=== PATIENT | male | born 1985 | race Caucasian/White ===

== ENCOUNTER 2016-09-04 10:37 | Emergency (ER) | payer SELFPAY ==
[~2016-09-04] VITALS: Ht 160 cm; Wt 68.5 kg
[~2016-09-04 10:37] MED LIST: DICY10CA60 PO; LOPE2CAP PO; ONDA4TAB8 PO
[2016-09-04 10:45] VITALS: Ht 160 cm; Wt 68.5 kg
[2016-09-04] MEDS ORDERED: LORAZEPAM 1 MG TAB PO ONE (13:00)
--- NOTE | 2016-09-04 13:53 | RADRPT ---
PROCEDURE: XR Chest. CLINICAL INDICATION: chest pain TECHNIQUE: Single frontal view of the chest was obtained COMPARISON: None FINDINGS: The heart and mediastinum are within normal limits. The lungs are clear. There is no pleural effusion or pneumothorax. RPTAT: AA IMPRESSION: No acute disease. .Yosi Wayne MD, Date Time Electronically viewed and signed by .Yosi Wayne MD, on 09/04/2016 13:52 .S/
[2016-09-04] MEDS ORDERED: LORA-441 PO (14:40)
[2016-09-04 14:46] VITALS: BP 126/72; PULSE 70; RESP 18; TEMP 98.2
--- NOTE | 2016-09-04 14:49 | ERD ---
ER Documentation Chief Complaint Date/Time DATE: 09/04/16 TIME: 14:44 Chief Complaint SHARP PAIN @ LEFT CHEST AREA HPI 31-year-old male patient with a previous history of alcoholism presents to the ED complaining of intermittent chest pain that started 1 week ago. Reports that it would sometimes occur at work and usually in the mornings at home. States that he feels like he is nervous and shaking. Denies any seizures. Denies any fever, neck stiffness, wheezing, shortness of breath, abdominal pain , nausea, vomiting, diarrhea. Denies any sick contacts. Denies any family history of heart attacks. Denies any drug use, smoking. ROS All systems reviewed and are negative except as per history of present illness. Medications Home Meds Active Scripts Lorazepam* (Ativan*) 0.5 Mg Tablet, 0.5 MG PO QHS, #3 TAB Prov:BAKARI BUENROSTRO PA-C 09/04/16 Dicyclomine Hcl* (Bentyl*) 10 Mg Capsule, 10 MG PO QID for 3 Days, CAP Prov:CHAITANYA YANES C 07/16/15 Ondansetron Hcl* (Zofran*) 4 Mg Tablet, 4 MG PO Q6H for NAUSEA AND/OR VOMITING, #30 TAB Prov:JOAQUÍNCHAITANYA CERNA C 07/16/15 Loperamide Hcl* (Imodium*) 2 Mg Capsule, 2 MG PO .WITH EACH DIARRHEA Y for DIARRHEA for 3 Days, CAP MAX 16 mg/day Prov:JOAQUÍNCHAITANYA CERNA C 07/16/15 Allergies Allergies: Coded Allergies: No Known Drug Allergies (Verified Allergy, Unknown, 07/31/15) PMhx/Soc Medical and Surgical Hx: pt denies Medical Hx, pt denies Surgical Hx Hx Alcohol Use: Yes Hx Substance Use: No Hx Tobacco Use: No Physical Exam Vitals Vital Signs Date Time Temp Pulse Resp B/P Pulse Ox O2 Delivery O2 Flow Rate FiO2 09/04/16 10:45 98.1 70 19 132/65 99 Physical Exam Const: Pky-hoh-gdvhvxryd, well-nourished. In no acute distress. Head: Atraumatic, normocephalic Eyes: Normal Conjunctiva without injection. No purulent discharge. PERRL. EOMI ENT: Normal external ear. Ear canal without erythema. Tympanic membrane pearly ledezma without effusion or bulging. Nasal canal clear with normal turbinates. Moist oropharynx without tonsillar exudates. Non-erythematous pharynx. Uvula midline. No drooling. No trismus. Neck: Full range of motion. No meningismus. No cervical lymphadenopathy. Resp: Clear to auscultation bilaterally. No wheezing, rhonchi, rales, or crackles. No accessory muscle use. No retractions. Cardio: Regular rate and rhythm. No murmurs, rubs or gallops. Chest: Tenderness to palpation of the left anterior chest. Pain is reproducible. Abd: Soft, non tender, non distended. Normal bowel sounds. No palpable masses. No rebound tenderness. No guarding. Skin: No petechiae or rashes Back: No midline tenderness. No CVA tenderness. Ext: No cyanosis, or edema. Neur: Awake and alert. Psych: Normal Mood and Affect Results 24 hrs Current Medications Medications (Trade) Dose Ordered Sig/Jaimee Route PRN Reason Start Time Stop Time Status Last Admin Dose Admin Lorazepam (Ativan) 1 mg ONCE ONCE PO 09/04/16 13:00 09/04/16 13:01 DC 09/04/16 12:58 Procedures/MDM This is a 31-year-old male patient with a past medical history of previous alcoholism which he is no longer taking presents to the ED complaining of sharp left sided chest pain and numbness and tingling associated with nervousness. Patient is afebrile and nontoxic-appearing. Patient has normal vital signs. Patient was further evaluated with EKG and chest x-ray. Patient was given Ativan 1 mg here in the ED with improvement of his symptoms. PROCEDURE: XR Chest. CLINICAL INDICATION: chest pain TECHNIQUE: Single frontal view of the chest was obtained COMPARISON: None FINDINGS: The heart and mediastinum are within normal limits. The lungs are clear. There is no pleural effusion or pneumothorax. RPTAT: AA IMPRESSION: No acute disease. EKG reviewed and interpreted by Dr. Manning Rate/Rhythm: [77 bpm, Normal Sinus Rhythm] No ectopy, no ST elevations, normal axis. QRS, ST, T-waves: [No changes consistent w/ acute ischemia] Impression: [No evidence of ischemia or arrhythmia] Patient symptoms are likely due to anxiety versus costochondritis. Reports that he has no relief with Ibuprofen and Tylenol. Low suspicion for delirium tremens, acute myocardial infarction, pneumothorax, pneumonia, cardiac tamponade , strangulate hernia, pulmonary embolism, AAA, aortic dissection, Boerhaave's syndrome, cardiac dysrhythmias,meningitis, intracranial bleed, seizure, stroke, TIA or other emergent conditions. Discharge medications: Ativan 0.5 mg qHS Follow up with primary care physician in 1-2 days. Check to patient to not drive or operate heavy machinery while taking this medication. Instructed patient to return to the ED sooner for any worsening symptoms. Patient's questions were answered. Patient understood and agreed with discharge plan. Patient discharged stable. Departure Diagnosis: Primary Impression: Chest pain Chest pain type: unspecified Qualified Code: R07.9 - Chest pain, unspecified type Condition: Stable Patient Instructions: Your Body's Response to Anxiety, Anxiety Reaction, Chest Wall Pain, Costochondritis Referrals: [facility] YOU HAVE RECEIVED A MEDICAL SCREENING EXAM AND THE RESULTS INDICATE THAT YOU DO NOT HAVE A CONDITION THAT REQUIRES URGENT TREATMENT IN THE EMERGENCY DEPARTMENT. FURTHER EVALUATION AND TREATMENT OF YOUR CONDITION CAN WAIT UNTIL YOU ARE SEEN IN YOUR DOCTORS OFFICE WITHIN THE NEXT 1-2 DAYS. IT IS YOUR RESPONSIBILITY TO MAKE AN APPOINTMENT FOR [facility]- CARE. IF YOU HAVE A PRIMARY DOCTOR --you should call your primary doctor and schedule an appointment IF YOU DO NOT HAVE A PRIMARY DOCTOR YOU CAN CALL OUR PHYSICIAN REFERRAL HOTLINE AT IF YOU CAN NOT AFFORD TO SEE A PHYSICIAN YOU CAN CHOSE FROM THE FOLLOWING [facility] CL[facility]ICS [facility] [address] [facility]. [facility] [address] [facility]. [facility] [address] [facility]. [facility] [address] [facility]. [facility] [address] [facility]. [facility]. [address] [facility] YOU HAVE RECEIVED A MEDICAL SCREENING EXAM AND THE RESULTS INDICATE THAT YOU DO NOT HAVE A CONDITION THAT REQUIRES URGENT TREATMENT IN THE EMERGENCY DEPARTMENT. FURTHER EVALUATION AND TREATMENT OF YOUR CONDITION CAN WAIT UNTIL YOU ARE SEEN IN YOUR DOCTORS OFFICE WITHIN THE NEXT 1-2 DAYS. IT IS YOUR RESPONSIBILITY TO MAKE AN APPOINTMENT FOR FOLOW-UP CARE. IF YOU HAVE A PRIMARY DOCTOR --you should call your primary doctor and schedule and appointment IF YOU DO NOT HAVE A PRIMARY DOCTOR YOU CAN CALL OUR PHYSICIAN REFERRAL HOTLINE AT . IF YOU CAN NOT AFFORD TO SEE A PHYSICIAN YOU CAN CHOSE FROM THE FOLLOWING [facility] INSTITUTIONS: [facility] [address] [place] [address] [facility] [address] [place] [address] [facility] + [facility] [address] [place] [address] [facility] URGENT CARE/SPECIALTIES Additional Instructions: Llame al doctor MAANA y cecy adams ARIANNA PARA DENTRO DE 2-3 HERNANDEZ.Dgale a la secretaria que nosotros le instruimos hacer esta arianna.Avise o llame si vaz condicin se empeora antes de la arianna. Regresa aqui si peor o no mejor. La medicina que se le recet puede causarle sueo.NO DEBE MANEJAR NI OPERAR MAQUINARIAS PELIGROSAS mientras esta tomando esta medicina! BAKARI BUENROSTRO PA-C Sep 04, 2016 14:49 BAKARI BUENROSTRO PA-C Sep 04, 2016 14:49
== END 2016-09-04 14:47 | disposition home or self-care (01) ==
LOC: FTE 10:37
DX: R07.9 Chest pain, unspecified (principal)
CPT/HCPCS: 71010; 93005

== ENCOUNTER 2017-01-02 15:26 | Emergency (ER) | END 2017-01-02 20:16 | disposition home or self-care (01) | DX: R07.9 Chest pain, unspecified (principal) | CPT/HCPCS: 71010; 80053; 81003; 84484; 85025; 93005; Z7502 ==

== ENCOUNTER 2017-09-24 11:36 | Emergency (ER) | END 2017-09-24 14:33 | disposition home or self-care (01) ==

== ENCOUNTER 2017-11-01 17:04 | Emergency (ER) | END 2017-11-01 20:05 | disposition home or self-care (01) ==

== ENCOUNTER 2017-11-24 12:19 | Emergency (ER) | END 2017-11-24 14:38 | disposition home or self-care (01) ==

== ENCOUNTER 2018-03-12 14:18 | Emergency (ER) | END 2018-03-12 17:00 | disposition home or self-care (01) ==

== ENCOUNTER 2018-03-28 12:33 | Emergency (ER) | END 2018-03-28 15:55 | disposition home or self-care (01) ==

== ENCOUNTER 2018-05-20 01:03 | Emergency (ER) | payer MEDICAID ==
[~2018-05-20] VITALS: Ht 162.6 cm; Wt 73.9 kg
[~2018-05-20 01:03] MED LIST changes: +CYCL10TA7 PO; +DICY10CA40 PO; -DICY10CA60 PO; +ELEC100080 PO; +FLUO20CA22 PO; +IBUP-1542 PO; +IBUP800T48 PO; +LORA-441 PO; +LORA1TAB PO; +NAPR-985 PO; +PRED20TA PO; +TRAM50TA2 PO
[2018-05-20 01:22] VITALS: BP 139/85; PULSE 81; RESP 16; Ht 162.6 cm; Wt 73.9 kg
[2018-05-20] MEDS ORDERED: LORA-441 PO (04:49)
--- NOTE | 2018-05-20 04:51 | ERD ---
ER Documentation Chief Complaint Chief Complaint ANXIETY; FREQUENT VISITS FOR RX ROS All systems reviewed and are negative except as per history of present illness. Medications Home Meds Active Scripts Lorazepam* (Ativan*) 0.5 Mg Tablet, 0.5 MG PO Q8H PRN for ANXIETY, #10 TAB Prov:NAHID KEITA DO 05/20/18 Lorazepam* (Ativan*) 0.5 Mg Tablet, 0.5 MG PO Q8H PRN for ANXIETY, #15 TAB Prov:NAHID KEITA 03/28/18 Lorazepam* (Ativan*) 0.5 Mg Tablet, 0.5 MG PO DAILY PRN for ANXIETY, #10 TAB Prov:CAMILA STARK MD 03/12/18 Fluoxetine Hcl* (Fluoxetine Hcl*) 20 Mg Capsule, 20 MG PO DAILY, #30 CAP Prov:CAMILA STARK MD 03/12/18 Loperamide Hcl* (Imodium*) 2 Mg Capsule, 2 MG PO .AFTER EA LOOSE BM PRN for DIARRHEA, #6 TAB Prov:CHANDRAKANT WATSON PA-C 11/24/17 Dicyclomine HCl (Dicyclomine HCl) 10 Mg Capsule, 10 MG PO QID, #20 Prov:CHANDRAKANT WATSON PA-C 11/24/17 Electrolyte,Oral (Pedialyte) 1,000 Ml Solution, 100 ML PO Q6 PRN for DIARRHEA, #1000 ML Prov:CHANDRAKANT WATSON PA-C 11/24/17 Tramadol HCl (Tramadol HCl) 50 Mg Tablet, 50 MG PO Q4 PRN for PAIN, #15 TAB Prov:KAREY KENNEY PA-C 11/01/17 Naproxen* (Naprosyn*) 500 Mg Tablet, 500 MG PO BID PRN for PAIN AND/OR INFLAMMATION, #30 TAB Prov:KAREY KENNEY PA-C 11/01/17 Prednisone* (Prednisone*) 20 Mg Tab, 40 MG PO DAILY for 4 Days, TAB Prov:CHANDRAKANT WATSON PA-C 09/24/17 Naproxen* (Naprosyn*) 500 Mg Tablet, 500 MG PO BID PRN for PAIN AND/OR INFLAMMATION, #30 TAB Prov:CHANDRAKANT WATSON PA-C 09/24/17 Tramadol HCl (Tramadol HCl) 50 Mg Tablet, 50 MG PO Q6 PRN for PAIN, #20 TAB Prov:CHANDRAKANT WATSON PA-C 09/24/17 Cyclobenzaprine Hcl* (Cyclobenzaprine Hcl*) 10 Mg Tablet, 10 MG PO TID, #15 TAB Prov:RISA ASH. ESTIMATOR JEWELRY 08/16/17 Ibuprofen* (Motrin*) 800 Mg Tab, 800 MG PO Q6H PRN for PAIN AND OR ELEVATED TEMP, #30 TAB Prov:RISA ASH. ESTIMATOR JEWELRY 08/16/17 Lorazepam* (Lorazepam*) 1 Mg Tablet, 1 MG PO Q8, #10 TAB Prov:CHAITANYA YANES 01/02/17 Ibuprofen* (Motrin*) 600 Mg Tab, 600 MG PO Q6, #30 TAB Prov:CHAITANYA YANES 01/02/17 Lorazepam* (Ativan*) 0.5 Mg Tablet, 0.5 MG PO QHS, #3 TAB Prov:BAKARI BUENROTSRO PA-C 09/04/16 Dicyclomine HCl (Dicyclomine HCl) 10 Mg Capsule, 10 MG PO QID for 3 Days, CAP Prov:CHAITANYA YANES 07/16/15 Ondansetron Hcl* (Zofran*) 4 Mg Tablet, 4 MG PO Q6H for NAUSEA AND/OR VOMITING, #30 TAB Prov:CHAITANYA YANES 07/16/15 Loperamide Hcl* (Imodium*) 2 Mg Capsule, 2 MG PO .WITH EACH DIARRHEA PRN for DIARRHEA for 3 Days, CAP MAX 16 mg/day Prov:CHAITANYA YANES 07/16/15 Allergies Allergies: Coded Allergies: No Known Drug Allergies (Verified Allergy, Unknown, 11/24/17) PMhx/Soc Medical and Surgical Hx: pt denies Medical Hx, pt denies Surgical Hx History of Surgery: No Anesthesia Reaction: No Hx Neurological Disorder: No Hx Respiratory Disorders: No Hx Cardiac Disorders: No Hx Psychiatric Problems: No Hx Miscellaneous Medical Probl: No Hx Alcohol Use: No Hx Substance Use: No Hx Tobacco Use: No Physical Exam Vitals Vital Signs Date Temp Pulse Resp B/P (MAP) Pulse Ox O2 O2 Flow FiO2 Time Delivery Rate 2/18/19 99.1 81 16 139/85 95 01:22 (103) Physical Exam Const: No acute distress Head: Atraumatic Eyes: Normal Conjunctiva ENT: Normal External Ears, Nose and Mouth. Neck: Full range of motion. No meningismus. Resp: Clear to auscultation bilaterally Cardio: Regular rate and rhythm, no murmurs Abd: Soft, non tender, non distended. Normal bowel sounds Skin: No petechiae or rashes Back: No midline or flank tenderness Ext: No cyanosis, or edema Neur: Awake and alert Psych: Normal Mood and Affect Departure Diagnosis: Primary Impression: Chest pain Chest pain type: unspecified Qualified Codes: R07.9 - Chest pain, unspecified Condition: Fair Patient Instructions: Chest Pain, Uncertain Cause Referrals: [facility] YOU HAVE RECEIVED A MEDICAL SCREENING EXAM AND THE RESULTS INDICATE THAT YOU DO NOT HAVE A CONDITION THAT REQUIRES URGENT TREATMENT IN THE EMERGENCY DEPARTMENT. FURTHER EVALUATION AND TREATMENT OF YOUR CONDITION CAN WAIT UNTIL YOU ARE SEEN IN YOUR DOCTORS OFFICE WITHIN THE NEXT 1-2 DAYS. IT IS YOUR RESPONSIBILITY TO MAKE AN APPOINTMENT FOR FOLOW-UP CARE. IF YOU HAVE A PRIMARY DOCTOR --you should call your primary doctor and schedule an appointment IF YOU DO NOT HAVE A PRIMARY DOCTOR YOU CAN CALL OUR PHYSICIAN REFERRAL HOTLINE AT IF YOU CAN NOT AFFORD TO SEE A PHYSICIAN YOU CAN CHOSE FROM THE FOLLOWING [facility] [address] [facility]. [facility] [address] [facility] [address] [facility] [address] [facility]. [facility] [address] [facility]. [facility]. [address] Additional Instructions: Llame al doctor MAANA y cecy adams ARIANNA PARA DENTRO DE 1-2 HERNANDEZ.Dgale a la secretaria que nosotros le instruimos hacer esta arianna.Avise o llame si vaz condicin se empeora antes de la arianna. Regresa aqui si peor o no mejor. NAHID KEITA DO May 20, 2018 04:51
== END 2018-05-20 04:57 | disposition home or self-care (01) ==
LOC: FTE 01:03
DX: R07.9 Chest pain, unspecified (principal)
CPT/HCPCS: 93005

== ENCOUNTER 2018-07-23 11:46 | Emergency (ER) | payer MEDICAID ==
[~2018-07-23] VITALS: Ht 165.1 cm; Wt 67.9 kg
[2018-07-23 11:52] VITALS: BP 130/86; PULSE 100; RESP 18; Ht 165.1 cm; Wt 67.9 kg
[2018-07-23] MEDS ORDERED: ALBUTEROL 0.083% (NEB) 2.5 MG/3 ML AMP HHN STA (13:12)
[2018-07-23] MEDS ORDERED: ONDANSETRON (ODT) 4 MG TAB ODT STA (13:12)
[2018-07-23] MEDS ORDERED: DEXAMETHASONE 10 MG/ML 1 ML INJ IM ONE (13:30)
[2018-07-23] MEDS ORDERED: ALBU18HF INHALATION (14:11)
[2018-07-23] MEDS ORDERED: ONDA8TAB14 PO (14:11)
--- NOTE | 2018-07-23 14:13 | ERD ---
ER Documentation Chief Complaint Chief Complaint pt is bib family with c/o vomiting and cough x 2 days, pain with cough HPI 32-year-old male presents with coughing for last 2 days. May have mild wheeze. He has posttussive vomiting nonbilious and nonbloody as well. He denies abdominal pain, diarrhea, urinary complaints, history of asthma. Denies chest pain. ROS All systems reviewed and are negative except as per history of present illness. Medications Home Meds Active Scripts Albuterol Sulfate* (Ventolin HFA*) 18 Gm Hfa.aer.ad, 2 PUFF INHALATION Q4H, #1 INHALER Prov:RONALD WHEAT MD 07/23/18 Ondansetron (Ondansetron Odt) 8 Mg Tab.rapdis, 8 MG PO Q6H PRN for NAUSEA AND/OR VOMITING, #6 TAB Prov:RONALD WHEAT MD 07/23/18 Lorazepam* (Ativan*) 0.5 Mg Tablet, 0.5 MG PO Q8H PRN for ANXIETY, #10 TAB Prov:NAHID KEITA DO 05/20/18 Lorazepam* (Ativan*) 0.5 Mg Tablet, 0.5 MG PO Q8H PRN for ANXIETY, #15 TAB Prov:NAHID KEITA DO 03/28/18 Lorazepam* (Ativan*) 0.5 Mg Tablet, 0.5 MG PO DAILY PRN for ANXIETY, #10 TAB Prov:CAMILA STARK MD 03/12/18 Fluoxetine Hcl* (Fluoxetine Hcl*) 20 Mg Capsule, 20 MG PO DAILY, #30 CAP Prov:CAMILA STARK MD 03/12/18 Loperamide Hcl* (Imodium*) 2 Mg Capsule, 2 MG PO .AFTER EA LOOSE BM PRN for DIARRHEA, #6 TAB Prov:CHANDRAKANT WATSON PA-C 11/24/17 Dicyclomine HCl (Dicyclomine HCl) 10 Mg Capsule, 10 MG PO QID, #20 Prov:CHANDRAKANT WATSON PA-C 11/24/17 Electrolyte,Oral (Pedialyte) 1,000 Ml Solution, 100 ML PO Q6 PRN for DIARRHEA, #1000 ML Prov:CHANDRAKANT WATSON PA-C 11/24/17 Tramadol HCl (Tramadol HCl) 50 Mg Tablet, 50 MG PO Q4 PRN for PAIN, #15 TAB Prov:KAREY KENNEY PA-C 11/01/17 Naproxen* (Naprosyn*) 500 Mg Tablet, 500 MG PO BID PRN for PAIN AND/OR INFLAMMATION, #30 TAB Prov:KAREY KENNEYC 11/01/17 Prednisone* (Prednisone*) 20 Mg Tab, 40 MG PO DAILY for 4 Days, TAB Prov:CHANDRAKANT WATSON PA-C 09/24/17 Naproxen* (Naprosyn*) 500 Mg Tablet, 500 MG PO BID PRN for PAIN AND/OR INFLAMMATION, #30 TAB Prov:CHANDRAKANT WATSON PA-C 09/24/17 Tramadol HCl (Tramadol HCl) 50 Mg Tablet, 50 MG PO Q6 PRN for PAIN, #20 TAB Prov:CHANDRAKANT WATSON PA-C 09/24/17 Cyclobenzaprine Hcl* (Cyclobenzaprine Hcl*) 10 Mg Tablet, 10 MG PO TID, #15 TAB Prov:RISA ASH STRINGED INSTRUMENT ASSEMBLER 08/16/17 Ibuprofen* (Motrin*) 800 Mg Tab, 800 MG PO Q6H PRN for PAIN AND OR ELEVATED TEMP, #30 TAB Prov:RISA ASH STRINGED INSTRUMENT ASSEMBLER 08/16/17 Lorazepam* (Lorazepam*) 1 Mg Tablet, 1 MG PO Q8, #10 TAB Prov:CHAITANYA YANES 01/02/17 Ibuprofen* (Motrin*) 600 Mg Tab, 600 MG PO Q6, #30 TAB Prov:CHAITANYA YANES 01/02/17 Lorazepam* (Ativan*) 0.5 Mg Tablet, 0.5 MG PO QHS, #3 TAB Prov:BAKARI BUENROSTRO PA-C 09/04/16 Dicyclomine HCl (Dicyclomine HCl) 10 Mg Capsule, 10 MG PO QID for 3 Days, CAP Prov:CHAITANYA YANES 07/16/15 Ondansetron Hcl* (Zofran*) 4 Mg Tablet, 4 MG PO Q6H for NAUSEA AND/OR VOMITING, #30 TAB Prov:CHAITANYA YANES 07/16/15 Loperamide Hcl* (Imodium*) 2 Mg Capsule, 2 MG PO .WITH EACH DIARRHEA PRN for DIARRHEA for 3 Days, CAP MAX 16 mg/day Prov:CHAITANYA YANES 07/16/15 Allergies Allergies: Coded Allergies: No Known Drug Allergies (Verified Allergy, Unknown, 07/23/18) PMhx/Soc History of Surgery: No Anesthesia Reaction: No Hx Neurological Disorder: No Hx Respiratory Disorders: No Hx Cardiac Disorders: No Hx Psychiatric Problems: No Hx Miscellaneous Medical Probl: No Hx Alcohol Use: No Hx Substance Use: No Hx Tobacco Use: No Smoking Status: Never smoker FmHx Family History: No diabetes, No coronary disease, No other Physical Exam Vitals Vital Signs Date Temp Pulse Resp B/P (MAP) Pulse Ox O2 O2 Flow FiO2 Time Delivery Rate 07/23/18 94 20 98 21 13:45 07/23/18 99.2 100 18 130/86 97 11:52 (101) Physical Exam Const: No acute distress Head: Atraumatic Eyes: Normal Conjunctiva ENT: Normal External Ears, Nose and Mouth. TMs and oropharynx normal. Neck: Full range of motion. No meningismus. Resp: Clear to auscultation bilaterally coarse cough with gagging due to coughing spells. No rales or retractions appreciated. Minimal forced wheeze. Cardio: Regular rate and rhythm, no murmurs Abd: Soft, non tender, non distended. Normal bowel sounds Skin: No petechiae or rashes Back: No midline or flank tenderness Ext: No cyanosis, or edema Neur: Awake and alert Psych: Normal Mood and Affect Results 24 hrs Current Medications Medications Dose Sig/Jaimee Start Time Status Last (Trade) Ordered Route PRN Stop Time Admin Dose Reason Admin 10 mg ONCE ONCE 07/23/18 DC 07/23/18 Dexamethasone IM 13:30 13:16 (Decadron) 07/23/18 13:31 Ondansetron 8 mg ONCE STAT 07/23/18 DC 07/23/18 HCl (Zofran ODT 13:12 13:16 Odt) 07/23/18 13:14 Albuterol 2.5 mg ONCE STAT 07/23/18 DC 07/23/18 (Proventil HHN 13:12 13:41 0.083% (Neb)) 07/23/18 13:14 Procedures/MDM Chest X-ray 1V Interpreted by me: Soft Tissue: No acute abnormalities Bones: No acute abnormalities Mediastinum/Cardiac Silhouette/Lungs: No acute abnormalities. Impression- normal 1 view chest x-ray Given Decadron 10 mg IM for possible wheezing causing coughing spells and posttussive vomiting. Patient given albuterol treatment x1. Patient had improvement in breath sounds and coughing. Patient has no signs of pneumonia, hypoxemia, rest distress and no symptoms to suggest cardiac chest pain, PE, abdominal pain. Will treat with Ventolin, Zofran, further observation at home and primary care follow-up. The patient was stable with no new complaints during the ER course. Clinically, there is no current evidence to suggest meningitis, sepsis, acute abdomen, pneumonia, stroke, acute coronary syndrome, pulmonary embolism, aortic dissection or any other emergent condition appearing to require further evaluation or hospitalization. Patient counseled regarding my diagnostic impression and care plan. Prior to discharge all questions answered. Pt agrees with treatment plan and understands strict return precautions. Pt is instructed to follow up with primary care provider within 24- 48 hours. Precautionary instructions provided including instructions to return to the ER if not improving or for any worsening or changing symptoms or con cerns. Departure Diagnosis: Primary Impression: URI, acute Additional Impression: Vomiting Vomiting type: unspecified Vomiting Intractability: unspecified Nausea presence: unspecified Qualified Codes: R11.10 - Vomiting, unspecified Condition: Stable Patient Instructions: Uri, Viral W/ Wheezing (Adult), Vomiting (6Y-Adult) Additional Instructions: X-ray normal. Examines normal hoy. Cheque otro vez con vaz doctor primario en el proximo suh or regresa para mas o nueva simptomas. Probablamente un virus que dura 2-4 suh. cheque otro vez en el proximo ginger para mas simptomas- vomito, dolor, yin, problemas con respirando, o con vaz doctor primario. RONALD WHEAT MD Jul 23, 2018 14:13
== END 2018-07-23 16:10 | disposition home or self-care (01) ==
LOC: FTE 11:46
DX: J06.9 Acute upper respiratory infection, unspecified (principal); R05 Cough
CPT/HCPCS: 71045; 94664; 96372; J1100; Z7502; Z7610

== ENCOUNTER 2018-08-06 18:00 | Emergency (ER) | payer MEDICAID ==
[~2018-08-06] VITALS: Ht 162.6 cm; Wt 66.6 kg
[~2018-08-06 18:00] MED LIST changes: +ALBU18HF INHALATION; +ONDA8TAB14 PO
[2018-08-06 18:09] VITALS: Ht 162.6 cm; Wt 66.6 kg
[2018-08-06] MEDS ORDERED: SOD CHLORIDE 0.9% 1,000 ML IV STA (20:07)
[2018-08-06] MEDS ORDERED: ONDANSETRON 4 MG INJ IV STA (20:07)
[2018-08-06] MEDS ORDERED: morphine 4 MG/ML VIAL IV STA (20:07)
[2018-08-06] MEDS ORDERED: ACET1TAB40 PO (21:09)
[2018-08-06] MEDS ORDERED: ONDA8TAB14 PO (21:09)
--- NOTE | 2018-08-06 21:13 | ERD ---
ER Documentation Chief Complaint Chief Complaint VOMITTING AND DIARRHEA X 3 DAYS HPI 33-year-old male presents with vomiting diarrhea for last 3 days. May have blood-tinged vomit without gross blood. Subjective fevers and chills without measured fevers no fever triage. No blood or mucus in the diarrhea. May have started after eating some street tacos. He has generalized abdominal pain. Patient admits to alcohol use but none prior to onset of symptoms. ROS All systems reviewed and are negative except as per history of present illness. Medications Home Meds Active Scripts Acetaminophen with Codeine (Acetaminophen-Cod #3 Tablet) 1 Each Tablet, 1 TAB PO Q6H PRN for PAIN, #7 TAB Prov:RONALD WHEAT MD 08/06/18 Ondansetron (Ondansetron Odt) 8 Mg Tab.rapdis, 8 MG PO Q6H PRN for NAUSEA AND/OR VOMITING, #6 TAB Prov:RONALD WHEAT MD 08/06/18 Albuterol Sulfate* (Ventolin HFA*) 18 Gm Hfa.aer.ad, 2 PUFF INHALATION Q4H, #1 INHALER Prov:RONALD WHEAT MD 07/23/18 Ondansetron (Ondansetron Odt) 8 Mg Tab.rapdis, 8 MG PO Q6H PRN for NAUSEA AND/OR VOMITING, #6 TAB Prov:RONALD WHEAT MD 07/23/18 Lorazepam* (Ativan*) 0.5 Mg Tablet, 0.5 MG PO Q8H PRN for ANXIETY, #10 TAB Prov:NAHID KEITA DO 05/20/18 Lorazepam* (Ativan*) 0.5 Mg Tablet, 0.5 MG PO Q8H PRN for ANXIETY, #15 TAB Prov:NAHID KEITA DO 03/28/18 Lorazepam* (Ativan*) 0.5 Mg Tablet, 0.5 MG PO DAILY PRN for ANXIETY, #10 TAB Prov:CAMILA STARK MD 03/12/18 Fluoxetine Hcl* (Fluoxetine Hcl*) 20 Mg Capsule, 20 MG PO DAILY, #30 CAP Prov:CAMILA STARK MD 03/12/18 Loperamide Hcl* (Imodium*) 2 Mg Capsule, 2 MG PO .AFTER EA LOOSE BM PRN for DIARRHEA, #6 TAB Prov:CHANDRAKANT WATSON-C 11/24/17 Dicyclomine HCl (Dicyclomine HCl) 10 Mg Capsule, 10 MG PO QID, #20 Prov:CHANDRAKANT WATSON-C 11/24/17 Electrolyte,Oral (Pedialyte) 1,000 Ml Solution, 100 ML PO Q6 PRN for DIARRHEA, #1000 ML Prov:CHANDRAKANT WATSON-C 11/24/17 Tramadol HCl (Tramadol HCl) 50 Mg Tablet, 50 MG PO Q4 PRN for PAIN, #15 TAB Prov:KAREY KENNEY-C 11/01/17 Naproxen* (Naprosyn*) 500 Mg Tablet, 500 MG PO BID PRN for PAIN AND/OR INFLAMMATION, #30 TAB Prov:KAREY KENNEY-C 11/01/17 Prednisone* (Prednisone*) 20 Mg Tab, 40 MG PO DAILY for 4 Days, TAB Prov:CHANDRAKANT WATSON-C 09/24/17 Naproxen* (Naprosyn*) 500 Mg Tablet, 500 MG PO BID PRN for PAIN AND/OR INFLAMMATION, #30 TAB Prov:CHANDRAKANT WATSON-C 09/24/17 Tramadol HCl (Tramadol HCl) 50 Mg Tablet, 50 MG PO Q6 PRN for PAIN, #20 TAB Prov:CHANDRAKANT WATSON-C 09/24/17 Cyclobenzaprine Hcl* (Cyclobenzaprine Hcl*) 10 Mg Tablet, 10 MG PO TID, #15 TAB Prov:RISA ASH DROP HAMMER PILE DRIVER OPERATOR 08/16/17 Ibuprofen* (Motrin*) 800 Mg Tab, 800 MG PO Q6H PRN for PAIN AND OR ELEVATED TEMP, #30 TAB Prov:RISA ASH [employer]OP H[employer]MER PILE DRIVER OPERATOR 08/16/17 Lorazepam* (Lorazepam*) 1 Mg Tablet, 1 MG PO Q8, #10 TAB Prov:CHAITANYA YANES 01/02/17 Ibuprofen* (Motrin*) 600 Mg Tab, 600 MG PO Q6, #30 TAB Prov:CHAITANYA YANES 01/02/17 Lorazepam* (Ativan*) 0.5 Mg Tablet, 0.5 MG PO QHS, #3 TAB Prov:BAKARI BUENROSTRO PA-C 09/04/16 Dicyclomine HCl (Dicyclomine HCl) 10 Mg Capsule, 10 MG PO QID for 3 Days, CAP Prov:CHAITANYA YANES Rigoberto 07/16/15 Ondansetron Hcl* (Zofran*) 4 Mg Tablet, 4 MG PO Q6H for NAUSEA AND/OR VOMITING, #30 TAB Prov:CHAITANYA YANES Rigoberto 07/16/15 Loperamide Hcl* (Imodium*) 2 Mg Capsule, 2 MG PO .WITH EACH DIARRHEA PRN for DIARRHEA for 3 Days, CAP MAX 16 mg/day Prov:CHAITANYA YANES Rigoberto 07/16/15 Allergies Allergies: Coded Allergies: No Known Drug Allergies (Verified Allergy, Unknown, 08/06/18) PMhx/Soc Medical and Surgical Hx: pt denies Medical Hx, pt denies Surgical Hx History of Surgery: No Anesthesia Reaction: No Hx Neurological Disorder: No Hx Respiratory Disorders: No Hx Cardiac Disorders: No Hx Psychiatric Problems: No Hx Miscellaneous Medical Probl: No Hx Alcohol Use: Yes Hx Substance Use: No Hx Tobacco Use: No FmHx Family History: No diabetes, No coronary disease, No other Physical Exam Vitals Vital Signs Date Temp Pulse Resp B/P (MAP) Pulse Ox O2 O2 Flow FiO2 Time Delivery Rate 08/06/18 97.7 104 24 141/79 95 18:09 (99) Physical Exam Const: No acute distress Head: Atraumatic Eyes: Normal Conjunctiva ENT: Normal External Ears, Nose and Mouth. Neck: Full range of motion. No meningismus. Resp: Clear to auscultation bilaterally Cardio: Regular rate and rhythm, no murmurs Abd: Soft, mild generalized guarding. No focal tenderness at McBurney's point no Mauro sign. No rebound., non distended. Normal bowel sounds Skin: No petechiae or rashes Back: No midline or flank tenderness Ext: No cyanosis, or edema Neur: Awake and alert Psych: Normal Mood and Affect Result Diagram: 08/06/18201708/06/182017 Results 24 hrs Laboratory Tests Test 08/06/18 20:18 White Blood Count 7.3 10^3/ul Red Blood Count 4.75 10^6/ul Hemoglobin 14.9 g/dl Hematocrit 44.0 % Mean Corpuscular Volume 92.6 fl Mean Corpuscular Hemoglobin 31.4 pg Mean Corpuscular Hemoglobin Concent 33.9 g/dl Red Cell Distribution Width 12.5 % Platelet Count 346 10^3/UL Mean Platelet Volume 9.0 fl Immature Granulocytes % 0.100 % Neutrophils % 71.3 % Lymphocytes % 21.9 % Monocytes % 6.2 % Eosinophils % 0.1 % Basophils % 0.4 % Nucleated Red Blood Cells % 0.0 /100WBC Immature Granulocytes # 0.010 10^3/ul Neutrophils # 5.2 10^3/ul Lymphocytes # 1.6 10^3/ul Monocytes # 0.5 10^3/ul Eosinophils # 0.0 10^3/ul Basophils # 0.0 10^3/ul Nucleated Red Blood Cells # 0.0 10^3/ul Urine Color YELLOW Urine Clarity CLEAR Urine pH 8.0 Urine Specific [place] 1.024 Urine Ketones NEGATIVE mg/dL Urine Nitrite NEGATIVE mg/dL Urine Bilirubin NEGATIVE mg/dL Urine Urobilinogen 2+ mg/dL Urine Leukocyte Esterase NEGATIVE [place]/ul Urine Hemoglobin NEGATIVE mg/dL Urine Glucose NEGATIVE mg/dL Urine Total Protein NEGATIVE mg/dl Sodium Level 146 mmol/L Potassium Level 3.8 mmol/L Chloride Level 102 mmol/L Carbon Dioxide Level 34 mmol/L Anion Gap 10 Blood Urea Nitrogen 9 mg/dl Creatinine 0.83 mg/dl Est Glomerular Filtrat Rate mL/min > 60 mL/min Glucose Level 112 mg/dl Calcium Level 8.9 mg/dl Total Bilirubin 0.5 mg/dl Direct Bilirubin 0.00 mg/dl Indirect Bilirubin 0.5 mg/dl Aspartate Amino Transf (AST/SGOT) 43 IU/L Alanine Aminotransferase (ALT/SGPT) 49 IU/L Alkaline Phosphatase 53 IU/L Total Protein 7.5 g/dl Albumin 4.4 g/dl Globulin 3.10 g/dl Albumin/Globulin Ratio 1.41 Lipase 495 U/L Current Medications Medications Dose Sig/Jaimee Start Time Status Last (Trade) Ordered Route PRN Stop Time Admin Dose Reason Admin Sodium 1,000 ml @ Q1H STAT 08/06/18 DC 08/06/18 Chloride 1,000 mls/hr IV 20:07 08/06/18 20:24 21:06 Morphine 4 mg ONCE STAT 08/06/18 DC 08/06/18 Sulfate IV 20:07 08/06/18 20:24 (morphine) 20:08 Ondansetron 4 mg ONCE STAT 08/06/18 DC 08/06/18 HCl (Zofran IV 20:07 08/06/18 20:24 Inj) 20:08 Procedures/MDM Patient presents with vomiting diarrhea for last 3 days. He has generalized abdominal guarding without focal peritoneal signs. IV was obtained. Is given 1 L normal saline IV, morphine 4 mg IV, Zofran 4 mg IV. Patient had a benign abdomen on serial exam. CBC is normal. CMP shows elevated CO2 and lipase barely above normal less than 3 times normal. Mild hypernatremia. Patient felt better after observation treatment. Patient presents with likely self-limited viral or foodborne illness. Patient has mild elevation of lipase but no signs of pancreatitis requiring current admission. Will treat with Zofran, Tylenol 3, instructions for bland diet, fluids, return precautions for abdominal pain, especially right lower abdomen or focal abdominal pain, vomiting despite treatment, fevers, new or worsening symptoms. The patient was stable with no new complaints during the ER course. Clinically, there is no current evidence to suggest meningitis, sepsis, acute abdomen, pneumonia, stroke, acute coronary syndrome, pulmonary embolism, aortic dissection or any other emergent condition appearing to require further evaluation or hospitalization. Patient counseled regarding my diagnostic impression and care plan. Prior to discharge all questions answered. Pt agrees with treatment plan and understands strict return precautions. Pt is instructed to follow up with primary care provider within 24- 48 hours. Precautionary instructions provided including instructions to return to the ER if not improving or for any worsening or changing symptoms or concerns. Disclaimer: Inadvertent spelling and grammatical errors are likely due to EHR/dictation software use and do not reflect on the overall quality of patient care. Also, please note that the electronic time recorded on this note does not necessarily reflect the actual time of the patient encounter. Departure Diagnosis: Primary Impression: Abdominal pain Additional Impression: Vomiting and diarrhea Condition: Stable Patient Instructions: Self-Care for Vomiting and Diarrhea, Abdominal Pain, Unkown Cause, (Male) Additional Instructions: Horita los examines dice no tiene appendicits o emferma mal, fatou es importante coma esta en el proximo ginger. chequ 8-12 horas par mas dolor, especialamente derecho y abajo vomito , fiebre, nueva simashanti. RONALD WHEAT MD August 06, 2018 21:13
[2018-08-06 22:00] VITALS: BP 127/62; PULSE 86; RESP 18
== END 2018-08-06 22:01 | disposition home or self-care (01) ==
LOC: FTE 18:00
DX: R10.84 Generalized abdominal pain (principal); R19.7 Diarrhea, unspecified
CPT/HCPCS: 36415; 80053; 81003; 83690; 85025; 96361; 96374; 96375; J2270; J2405; J7030; Z7502

== ENCOUNTER 2018-08-20 09:23 | Emergency (ER) | payer MEDICAID ==
[~2018-08-20] VITALS: Ht 165.1 cm; Wt 75.0 kg
[~2018-08-20 09:23] MED LIST changes: +ACET1TAB40 PO
[2018-08-20 09:26] VITALS: Ht 165.1 cm; Wt 75.0 kg
[2018-08-20] MEDS ORDERED: BELLADONNA/PHENOBARBITAL TAB PO STA (11:13)
[2018-08-20] MEDS ORDERED: KETOROLAC 15 MG INJ IV STA (11:13)
[2018-08-20] MEDS ORDERED: LIDOCAINE/MYLANTA 40 ML BTL PO STA (11:13)
[2018-08-20] MEDS ORDERED: LACTATED RINGER'S 1,000 ML IV STA (11:13)
--- NOTE | 2018-08-20 11:17 | ERD ---
ER Documentation Chief Complaint Chief Complaint ETOH; CHEST PAIN HPI 33-year-old alcoholic man presents with epigastric abdominal pain, burning, and withdrawals, he admits to drinking alcohol daily and then stopped today. He has had no vomiting or diarrhea, no blood per rectum or melena, no weight loss, no suicidal homicidal ideation ROS All systems reviewed and are negative except as per history of present illness. Medications Home Meds Active Scripts Famotidine* (Pepcid*) 20 Mg Tablet, 20 MG PO BID, #30 TAB Prov:JONNY MURO MD 08/20/18 Ondansetron Hcl* (Zofran*) 4 Mg Tablet, 4 MG PO Q8H PRN for NAUSEA AND/OR VOMITING, #30 TAB Prov:JONNY MURO MD 08/20/18 Discontinued Scripts Acetaminophen with Codeine (Acetaminophen-Cod #3 Tablet) 1 Each Tablet, 1 TAB PO Q6H PRN for PAIN, #7 TAB Prov:RONALD WHEAT MD 08/06/18 Ondansetron (Ondansetron Odt) 8 Mg Tab.rapdis, 8 MG PO Q6H PRN for NAUSEA AND/OR VOMITING, #6 TAB Prov:RONALD WHEAT MD 08/06/18 Albuterol Sulfate* (Ventolin HFA*) 18 Gm Hfa.aer.ad, 2 PUFF INHALATION Q4H, #1 INHALER Prov:RONALD WHEAT MD 07/23/18 Ondansetron (Ondansetron Odt) 8 Mg Tab.rapdis, 8 MG PO Q6H PRN for NAUSEA AND/OR VOMITING, #6 TAB Prov:RONALD WHEAT MD 07/23/18 Lorazepam* (Ativan*) 0.5 Mg Tablet, 0.5 MG PO Q8H PRN for ANXIETY, #10 TAB Prov:NAHID KEITA DO 05/20/18 Lorazepam* (Ativan*) 0.5 Mg Tablet, 0.5 MG PO Q8H PRN for ANXIETY, #15 TAB Prov:NAHID KEITA DO 03/28/18 Lorazepam* (Ativan*) 0.5 Mg Tablet, 0.5 MG PO DAILY PRN for ANXIETY, #10 TAB Prov:CAMILA STARK MD 03/12/18 Fluoxetine Hcl* (Fluoxetine Hcl*) 20 Mg Capsule, 20 MG PO DAILY, #30 CAP Prov:CAMILA STARK MD 03/12/18 Loperamide Hcl* (Imodium*) 2 Mg Capsule, 2 MG PO .AFTER EA LOOSE BM PRN for DIARRHEA, #6 TAB Prov:CHANDRAKANT WATSONC 11/24/17 Dicyclomine HCl (Dicyclomine HCl) 10 Mg Capsule, 10 MG PO QID, #20 Prov:CHANDRAKANT WATSONC 11/24/17 Electrolyte,Oral (Pedialyte) 1,000 Ml Solution, 100 ML PO Q6 PRN for DIARRHEA, #1000 ML Prov:CHANDRAKANT WATSON PA-C 11/24/17 Tramadol HCl (Tramadol HCl) 50 Mg Tablet, 50 MG PO Q4 PRN for PAIN, #15 TAB Prov:KAREY KENNEY-C 11/01/17 Naproxen* (Naprosyn*) 500 Mg Tablet, 500 MG PO BID PRN for PAIN AND/OR INFLAMMATION, #30 TAB Prov:KAREY KENNEYC 11/01/17 Prednisone* (Prednisone*) 20 Mg Tab, 40 MG PO DAILY for 4 Days, TAB Prov:CHANDRAKANT WATSONC 09/24/17 Naproxen* (Naprosyn*) 500 Mg Tablet, 500 MG PO BID PRN for PAIN AND/OR INFLAMMATION, #30 TAB Prov:CHANDRAKANT WATSONC 09/24/17 Tramadol HCl (Tramadol HCl) 50 Mg Tablet, 50 MG PO Q6 PRN for PAIN, #20 TAB Prov:CHANDRAKANT WATSON-C 09/24/17 Cyclobenzaprine Hcl* (Cyclobenzaprine Hcl*) 10 Mg Tablet, 10 MG PO TID, #15 TAB Prov:RISA ASH NP 08/16/17 Ibuprofen* (Motrin*) 800 Mg Tab, 800 MG PO Q6H PRN for PAIN AND OR ELEVATED TEMP, #30 TAB Prov:RISA ASH NP 08/16/17 Lorazepam* (Lorazepam*) 1 Mg Tablet, 1 MG PO Q8, #10 TAB Prov:CHAITANYA YANES 01/02/17 Ibuprofen* (Motrin*) 600 Mg Tab, 600 MG PO Q6, #30 TAB Prov:CHAITANYA YANES 01/02/17 Lorazepam* (Ativan*) 0.5 Mg Tablet, 0.5 MG PO QHS, #3 TAB Prov:BAKARI BUENROSTROLouis COREA 09/04/16 Dicyclomine HCl (Dicyclomine HCl) 10 Mg Capsule, 10 MG PO QID for 3 Days, CAP Prov:CHAITANYA YANES 07/16/15 Ondansetron Hcl* (Zofran*) 4 Mg Tablet, 4 MG PO Q6H for NAUSEA AND/OR VOMITING, #30 TAB Prov:CHAITANYA YANES 07/16/15 Loperamide Hcl* (Imodium*) 2 Mg Capsule, 2 MG PO .WITH EACH DIARRHEA PRN for DIARRHEA for 3 Days, CAP MAX 16 mg/day Prov:CHAITANYA YANES 07/16/15 Allergies Allergies: Coded Allergies: No Known Drug Allergies (Verified Allergy, Unknown, 08/20/18) PMhx/Soc Alcoholism History of Surgery: No Anesthesia Reaction: No Hx Neurological Disorder: No Hx Respiratory Disorders: No Hx Cardiac Disorders: No Hx Psychiatric Problems: No Hx Miscellaneous Medical Probl: No Hx Alcohol Use: Yes Hx Substance Use: No Hx Tobacco Use: No FmHx Family History: No diabetes Physical Exam Vitals Vital Signs Date Temp Pulse Resp B/P (MAP) Pulse Ox O2 O2 Flow FiO2 Time Delivery Rate 08/20/18 98.3 93 19 133/65 96 09:26 (87) Physical Exam GENERAL: Well-developed, well-nourished, appears intoxicated, tremulous, afebrile HEENT: Moist mucous membranes, pink conjunctiva, no cervical spine tenderness or step-off deformities, no goiter, no jaundice or icterus, extraocular movements intact without pain. No submandibular induration, and no pharyngeal erythema NEURO: Alert and oriented 3, cranial nerves II through XII intact bilaterally, pupils equal round reactive to light, positive upper extremity tremors, gait normal CARDIAC: Tachycardic and regular, no murmurs rubs or gallops LUNGS: Clear bilaterally no wheezing crackles or stridor ABDOMEN: Soft nontender, no guarding, no rigidity, no rebound, no psoas sign no obturator sign. SKIN: Warm and dry to touch, no abrasions, contusions, or hematomas, no lacerations, no ecchymosis, no target lesions, and without ulcers EXTREMITIES: No clubbing cyanosis or edema, calves are bilaterally symmetrical, no Homans sign, no popliteal cord sign. Distal pulses equal and bilateral PSYCH: Appears anxious Result Diagram: 08/20/18 1144 08/20/18 1144 Results 24 hrs Laboratory Tests Test 08/20/18 11:44 White Blood Count 4.5 10^3/ul Red Blood Count 4.54 10^6/ul Hemoglobin 14.5 g/dl Hematocrit 42.6 % Mean Corpuscular Volume 93.8 fl Mean Corpuscular Hemoglobin 31.9 pg Mean Corpuscular Hemoglobin Concent 34.0 g/dl Red Cell Distribution Width 14.4 % Platelet Count 99 10^3/UL Mean Platelet Volume 10.0 fl Immature Granulocytes % 0.400 % Neutrophils % % Segmented Neutrophils % (Manual) 70 % Band Neutrophils % (Manual) 5 % Lymphocytes % % Lymphocytes % (Manual) 17 % Reactive Lymphocytes % (Manual) 1 % Monocytes % % Monocytes % (Manual) 6 % Eosinophils % % Basophils % % Myelocytes % (Manual) 1 % Nucleated Red Blood Cells % 0.0 /100WBC Immature Granulocytes # 0.020 10^3/ul Neutrophils # 10^3/ul Neutrophils # (Manual) 3.2 10^3/ul Band Neutrophils # 0.2 10^3/ul Lymphocytes (Manual) 0.7 10^3/ul Lymphocytes # 10^3/ul Reactive Lymphocytes # 0.0 10^3/ul Monocytes # 10^3/ul Monocytes # (Manual) 0.2 10^3/ul Eosinophils # 10^3/ul Basophils # 10^3/ul Myelocytes # 0.0 10^3/ul Nucleated Red Blood Cells # 10^3/ul Platelet Estimate DECREASED Polychromasia 1+ Anisocytosis 1+ Ovalocytes 1+ Stomatocytes 1+ Rouleau 1+ Sodium Level 141 mmol/L Potassium Level 4.2 mmol/L Chloride Level 102 mmol/L Carbon Dioxide Level 26 mmol/L Anion Gap 13 Blood Urea Nitrogen 5 mg/dl Creatinine 0.70 mg/dl Est Glomerular Filtrat Rate mL/min > 60 mL/min Glucose Level 112 mg/dl Calcium Level 9.4 mg/dl Total Bilirubin 0.6 mg/dl Direct Bilirubin 0.00 mg/dl Indirect Bilirubin 0.6 mg/dl Aspartate Amino Transf (AST/SGOT) 82 IU/L Alanine Aminotransferase (ALT/SGPT) 48 IU/L Alkaline Phosphatase 62 IU/L Troponin I < 0.012 ng/ml Total Protein 7.6 g/dl Albumin 4.6 g/dl Globulin 3.00 g/dl Albumin/Globulin Ratio 1.53 Lipase 259 U/L Current Medications Medications Dose Sig/Jaimee Start Time Status Last (Trade) Ordered Route PRN Stop Time Admin Dose Reason Admin Lactated 1,000 ml @ Q1H STAT 08/20/18 DC 08/20/18 Ringer's 1,000 mls/hr IV 11:13 12:00 08/20/18 12:12 40 ml ONCE STAT 08/20/18 DC 08/20/18 Miscellaneous PO 11:13 12:00 Medication 08/20/18 11:14 (Gi Cocktail (2)) Belladonna/ 2 tab ONCE STAT 08/20/18 DC 08/20/18 Phenobarbital PO 11:13 12:00 () 08/20/18 11:14 Ketorolac 15 mg ONCE STAT 08/20/18 DC 08/20/18 Tromethamine IV 11:13 12:00 (Toradol) 08/20/18 11:14 Lorazepam 1 mg ONCE ONCE 08/20/18 DC 08/20/18 (Ativan) PO 11:30 12:00 08/20/18 11:31 Procedures/MDM IV line was established patient was placed on environmental monitoring technician rhythm strip revealed a sinus rhythm at about 90 bpm with upright P and T waves. Patient was afebrile EKG performed, read by me revealed a normal sinus rhythm at 90 bpm, normal axis, narrow QRS complex, no concerning ST elevations or depressions noted One AP view of the chest performed, read by me reveals no acute infiltrates, normal mediastinum, sharp costophrenic and cardiac borders, no air under the diaphragm. Otherwise unremarkable chest x-ray. I administered 1 L normal saline IV, GI cocktail p.o., Toradol 15 mg IV, lorazepam 1 mg p.o. CBC and electrolytes are normal, liver function tests were normal, troponin was negative Patient's vital signs are normal and withdrawal symptoms have resolved, gait is normal and steady and patient feels much better. Differential diagnoses considered, included but not limited to acute coronary syndrome, pulmonary embolism, aortic dissection, abdominal aortic aneurysm, sepsis, stroke, meningitis, encephalitis, pneumonia, appendicitis, cholecys titis, bowel obstruction, pyelonephritis, nephrolithiasis, cystitis, as well as metabolic, hematologic, and electrolyte abnormalities. As well as abscess, cellulitis, fractures, and dislocations. Patient feels much better at this time, and vital signs are normal, symptoms have improved. I did give strict instructions to return to the ED if symptoms continue or worsen, patient will otherwise follow-up with primary care physician. Patient understood instructions and agreed to plan. Disclaimer: Inadvertent spelling and grammatical errors are likely due to EHR/dictation software use and do not reflect on the overall quality of patient care. Also, please note that the electronic time recorded on this note does not necessarily reflect the actual time of the patient encounter. Departure Diagnosis: Primary Impression: Epigastric abdominal pain Additional Impressions: Alcoholism Alcohol withdrawal Complication of substance-induced condition: uncomplicated Qualified Codes: F10.230 - Alcohol dependence with withdrawal, uncomplicated Condition: Good JONNY MURO MD August 20, 2018 11:17
[2018-08-20] MEDS ORDERED: LORAZEPAM 1 MG TAB PO ONE (11:30)
[2018-08-20] MEDS ORDERED: FAMO-96 PO (13:41)
[2018-08-20] MEDS ORDERED: ONDA4TAB8 PO (13:41)
[2018-08-20 14:20] VITALS: BP 117/62; PULSE 68; RESP 16
== END 2018-08-20 14:20 | disposition home or self-care (01) ==
LOC: E/R 09:23
DX: F10.230 Alcohol dependence with withdrawal, uncomplicated (principal); R10.13 Epigastric pain
CPT/HCPCS: 36415; 71045; 80053; 83690; 84484; 85025; 93005; 96374; J1885; J7120; Z7502; Z7610

== ENCOUNTER 2018-09-06 09:03 | Emergency (ER) | payer MEDICAID ==
[~2018-09-06] VITALS: Wt 59.0 kg
[~2018-09-06 09:03] MED LIST changes: -ACET1TAB40 PO; -ALBU18HF INHALATION; -CYCL10TA7 PO; -DICY10CA40 PO; -ELEC100080 PO; +FAMO-96 PO; -FLUO20CA22 PO; -IBUP-1542 PO; -IBUP800T48 PO; -LOPE2CAP PO; -LORA-441 PO; -LORA1TAB PO; -NAPR-985 PO; -ONDA8TAB14 PO; -PRED20TA PO; -TRAM50TA2 PO
[2018-09-06 09:06] VITALS: BP 133/71; PULSE 74; RESP 18
[2018-09-06] MEDS ORDERED: ONDANSETRON (ODT) 4 MG TAB ODT STA (09:44)
[2018-09-06] MEDS ORDERED: ONDA4TAB14 PO (10:00)
[2018-09-06] MEDS ORDERED: LORAZEPAM 0.5 MG TAB PO ONE (10:00)
[2018-09-06] MEDS ORDERED: LORA-441 PO (10:00)
--- NOTE | 2018-09-06 10:03 | ERD ---
ER Documentation Chief Complaint Chief Complaint CP FOR 3 DAYS WITH DIZZINESS AND NAUSEA, NO VOMITING. HX OF ANXIETY HPI Patient is a 33-year-old male with past medical history of anxiety, presents the ER for multiple complaints. Patient states he has had chest pain for the last 3 days. He states he feels as if his heart is racing. Patient denies any shortness of breath. Patient also states he occasionally feels dizzy and nauseated. He denies any vomiting. Patient also reports headache. Patient denies any falls or trauma. Patient denies fevers or chills. Patient denies neck pain or neck stiffness. Patient states he feels as if his hands are numb and tingling. He has a history of anxiety. Patient states he ran out of his anxiety medication thus he is needing a refill. Patient states he is stressed secondary to personal reasons and family problems. Patient denies any homicidal or suicidal ideations. Patient denied any leg swelling, recent surgeries, travel. ROS All systems reviewed and are negative except as per history of present illness. Medications Home Meds Active Scripts Lorazepam* (Ativan*) 0.5 Mg Tablet, 0.5 MG PO Q8, #5 TAB Prov:KAREY KENNEY PA-C 09/06/18 Ondansetron (Ondansetron Odt) 4 Mg Tab.rapdis, 4 MG PO Q6H PRN for NAUSEA AND/OR VOMITING, #10 TAB Prov:KAREY KENNEY PA-C 09/06/18 Famotidine* (Pepcid*) 20 Mg Tablet, 20 MG PO BID, #30 TAB Prov:JONNY MURO MD 08/20/18 Ondansetron Hcl* (Zofran*) 4 Mg Tablet, 4 MG PO Q8H PRN for NAUSEA AND/OR VOMITING, #30 TAB Prov:JONNY MURO MD 08/20/18 Allergies Allergies: Coded Allergies: No Known Drug Allergies (Verified Allergy, Unknown, 08/20/18) PMhx/Soc History of Surgery: No Anesthesia Reaction: No Hx Neurological Disorder: No Hx Respiratory Disorders: No Hx Cardiac Disorders: No Hx Psychiatric Problems: Yes (ANXIETY) Hx Miscellaneous Medical Probl: No Hx Alcohol Use: Yes Hx Substance Use: No Hx Tobacco Use: No FmHx Family History: No diabetes Physical Exam Vitals Physical Exam GENERAL: Well-developed, well-nourished male. Appears anxious. HEAD: Normocephalic, atraumatic. EYES: Pupils are equally reactive bilaterally. EOMs grossly intact. No conjunctival erythema. ENT: Moist mucous membranes. No uvula deviation. No kissing tonsils. NECK: Supple. No meningismus. Normal range of motion of the neck. LUNG: Clear to auscultation bilaterally. No rhonchi, wheezing, rales or coarse breath sounds. CHEST WALL: Tender to palpation of the chest wall. Pain is reproducible. HEART: Regular rate and rhythm. No murmurs, rubs or gallops. Equal pulses in bilateral upper extremities. EXTREMITIES: Equal pulses bilaterally. No peripheral clubbing, cyanosis or edema. No unilateral leg swelling. NEUROLOGIC: Alert and oriented. Moving all four extremities without any dif ficulty. Normal speech. Steady gait. SKIN: Normal color. Warm and dry. No rashes or lesions. Results 24 hrs Current Medications Medications Dose Sig/Jaimee Start Time Status Last (Trade) Ordered Route PRN Stop Time Admin Dose Reason Admin Lorazepam 0.5 mg ONCE ONCE 09/06/18 DC 09/06/18 (Ativan) PO 10:00 09/06/18 09:46 10:01 Ondansetron 4 mg ONCE STAT 09/06/18 DC 09/06/18 HCl (Zofran ODT 09:44 09/06/18 09:46 Odt) 09:45 Procedures/MDM ED COURSE: The patient was stable throughout ED course. I kept the patient and/or family informed of laboratory and diagnostic imaging results throughout the ED course. EKG: Read by Dr. Perdomo, attending physician. EKG shows normal sinus rhythm at a rate of 71 bpm No arrhythmias, acute ST elevations or T wave changes were noted. MEDICATIONS GIVEN: Ativan and Zofran Patient tolerated medication well with no adverse reactions. Patient reported improvement in pain. MEDICAL DECISION MAKING: This is a 33-year-old male who presents the ER for concerns of multiple complaints including chest pain, headache, paresthesias, anxiousness and nausea x3 days. Patient has a history of anxiety states he is ran out of his anxiety medications. Patient did feel like his symptoms are related to his anxiety. Patient denies any homicidal or suicidal ideations. Vital signs were reviewed. Patient was afebrile. Patient was not hypoxic. Cardiac exam was normal. Lung exam was normal. Reproducible chest wall pain noted on exam. EKG showed normal sinus rhythm. Patient was given Ativan as well as Zofran. Upon examination, patient reported improvement symptoms. At this time, I do feel that patient's symptoms are related to anxiety reaction. Review of the ED i.e. report shows that patient has been seen at numerous facilities for similar symptom in the past. Short course of Ativan will be given as patient does show symptoms consistent with anxiety attack. Patient was encouraged to follow-up with a [facility] physician for referral to psychiatry versus psychologists for further management of his ongoing symptoms. Low suspicion for intracranial hemorrhage, severe electrolyte abnormality, sepsis, ACS, arrhythmia, pericarditis, pneumothorax, pneumonia, PE, aortic dissection. PRESCRIPTIONS: Ativan, Zofran DISCHARGE: At this time, patient is stable for discharge and outpatient management. I have instructed the patient to follow-up with his/her primary care physician in 1-2 days. If symptoms persist, patient may need to see a specialist for further examinations and testing. I have instructed the patient to promptly return to the ER at any time for any new or worsening symptoms including increased increased pain, fever, nausea, vomiting, numbness, weakness, diaphoresis or LOC. The patient and/or family expressed understanding of and agreement with this plan. All questions were answered. Home care instructions were provided. Disclaimer: Inadvertent spelling and grammatical errors are likely due to EHR/dictation software use and do not reflect on the overall quality of patient care. Also, please note that the electronic time recorded on this note does not necessarily reflect the actual time of the patient encounter. Departure Diagnosis: Primary Impression: Anxiety Additional Impression: Chest wall pain Condition: Fair Patient Instructions: Anxiety Reaction Referrals: [facility] YOU HAVE RECEIVED A MEDICAL SCREENING EXAM AND THE RESULTS INDICATE THAT YOU DO NOT HAVE A CONDITION THAT REQUIRES URGENT TREATMENT IN THE EMERGENCY DEPARTMENT. FURTHER EVALUATION AND TREATMENT OF YOUR CONDITION CAN WAIT UNTIL YOU ARE SEEN IN YOUR DOCTORS OFFICE WITHIN THE NEXT 1-2 DAYS. IT IS YOUR RESPONSIBILITY TO MAKE AN APPOINTMENT FOR FOLOW-UP CARE. IF YOU HAVE A PRIMARY DOCTOR --you should call your primary doctor and schedule an appointment IF YOU DO NOT HAVE A PRIMARY DOCTOR YOU CAN CALL OUR PHYSICIAN REFERRAL HOTLINE AT IF YOU CAN NOT AFFORD TO SEE A PHYSICIAN YOU CAN CHOSE FROM THE FOLLOWING COMMUNITY CLINICS [facility] [address] [facility] [address] [facility] [facility] [address] [facility] [address] [facility] [address] [facility]. [facility] [address] [facility]. [facility] YOU HAVE RECEIVED A MEDICAL SCREENING EXAM AND THE RESULTS INDICATE THAT YOU DO NOT HAVE A CONDITION THAT REQUIRES URGENT TREATMENT IN THE EMERGENCY DEPARTMENT. FURTHER EVALUATION AND TREATMENT OF YOUR CONDITION CAN WAIT UNTIL YOU ARE SEEN IN YOUR DOCTORS OFFICE WITHIN THE NEXT 1-2 DAYS. IT IS YOUR RESPONSIBILITY TO MAKE AN APPOINTMENT FOR FOLOW-UP CARE. IF YOU HAVE A PRIMARY DOCTOR --you should call your primary doctor and schedule and appointment IF YOU DO NOT HAVE A PRIMARY DOCTOR YOU CAN CALL OUR PHYSICIAN REFERRAL HOTLINE AT . IF YOU CAN NOT AFFORD TO SEE A PHYSICIAN YOU CAN CHOSE FROM THE FOLLOWING [facility] INSTITUTIONS: [facility] [address] [place] [address] [facility] [address] [place], [place] [id number] [place] [address] [address] [place] [address] Additional Instructions: Llame al doctor MAANA y cecy adams ARIANNA PARA DENTRO DE 1-2 HERNANDEZ.Dgale a la secretaria que nosotros le instruimos hacer esta arainna.Avise o llame si vaz condicin se empeora antes de la arianna. Regresa aqui si peor o no mejor. KAREY KENNEY PA-C Sep 06, 2018 10:02
== END 2018-09-06 10:09 | disposition home or self-care (01) ==
LOC: FTE 09:03
DX: F41.9 Anxiety disorder, unspecified (principal); R07.89 Other chest pain
CPT/HCPCS: 93005; Z7502; Z7610